=== PATIENT | female | born 1970 | race Caucasian/White ===

== ENCOUNTER 2016-09-12 20:44 | Inpatient (IN) | payer MEDICAID, OTHER ==
[~2016-09-12] VITALS: Ht 160 cm; Wt 59.4 kg
[2016-09-12] MEDS ORDERED: IV D5 LR 500 ML IV ONE ×2 (21:00→21:15)
[2016-09-12] MEDS ORDERED: ONDANSETRON HCL/PF 4 MG/2 ML VIAL IVP ONE (21:00)
[2016-09-12] MEDS ORDERED: MECLIZINE HCL 12.5 MG TABLET PO ONE (21:00)
--- NOTE | 2016-09-12 21:00 | NUR ---
PT A/OX4 BREATHING EFFORTLESSLY ON ROOM AIR, PT C/O NAUSE AND VOMITING WITH DIARRHEa x 3 HOURS, PT FAMILY IS AT BEDSIDE, IV PLACED LABS DRAWN, URINE COLLECTED, PT ON MONITOR VSS MD MADE AWARE WILL CONTINUE TO MONITOR.
[2016-09-12] MEDS ORDERED: MECLIZINE HCL 25 MG TABLET ONE (21:14)
[2016-09-12] MEDS ORDERED: ONDANSETRON HCL/PF 4 MG/2 ML VIAL ONE (21:14)
[2016-09-12] MEDS ORDERED: IV SET PRIMARY PUMP SET 1 EA INFUS.SET MC ONE (21:15)
[2016-09-12] MEDS ORDERED: LORAZEPAM INJ 2 MG/ML VIAL ONE (22:12)
[2016-09-12] MEDS ORDERED: PROMETHAZINE HCL 25 MG/ML AMPUL ONE (22:12)
[2016-09-12] MEDS ORDERED: PROMETHAZINE HCL 25 MG/ML AMPUL IV ONE (22:30)
[2016-09-12] MEDS ORDERED: LORAZEPAM INJ 2 MG/ML VIAL IV ONE (22:30)
--- NOTE | 2016-09-12 22:38 | NUR ---
PT STATES SHE IS FEELING A LITTLE BETTER BUT NOT FEELING 100% MD MADE AWARE WILL CONTINUE TO MONITOR.
--- NOTE | 2016-09-12 23:27 | NUR ---
PT TO CT
[2016-09-12 23:28] LABS: BASOPHILS % (AUTO) 0.4 % (0.0-2.0); EOSINOPHILS % (AUTO) 0.5 % (0.0-6.0); HEMATOCRIT 41 % (33-45); HEMOGLOBIN 13.7 g/dL (11.5-14.8); LYMPHOCYTES % (AUTO) 17.4 % (20.0-44.0); MEAN CORPUSCULAR HEMOGLOBIN 29 PG (26.0-33.0); MEAN CORPUSCULAR HGB CONC 34 g/dl (31.0-36.0); MEAN CORPUSCULAR VOLUME 86 fL (82-100); MONOCYTES # (AUTO) 0.1 /CMM (0.1-1.30); MONOCYTES % (AUTO) 2.2 % (2.0-12.0); NEUTROPHILS # (AUTO) 4.6 /CMM (1.8-8.9); NEUTROPHILS % (AUTO) 79.5 % (43.0-81.0); PLATELET COUNT (AUTO) 119 /CMM (150-450); WHITE BLOOD COUNT (AUTO) 5.8 K/uL (4.3-11.0)
[2016-09-12 23:37] LABS: ALBUMIN 4.4 g/dL (3.4-5.0); BILIRUBIN,DIRECT 0.1 mg/dL (0.0-0.2); BILIRUBIN,TOTAL 0.4 mg/dL (0.2-1.0); CREATININE 0.7 mg/dL (0.6-1.3); POTASSIUM 3.4 mmol/L (3.5-5.1); TOTAL PROTEIN, SERUM 8.1 g/dL (6.4-8.2)
[2016-09-13 00:02] LABS: BAND % (MANUAL) 1 % (0.0-5.0); EOSINOPHILS % (MANUAL) 1 % (0-4); LYMPHOCYTES % (MANUAL) 17 % (16-48); MONOCYTES % (MANUAL) 3 % (0-11.0); NEUTROPHILS % (MANUAL) 78 (42-76)
[2016-09-13 00:13] LABS: CALCIUM, SERUM 9.5 mg/dL (8.5-10.1)
[2016-09-13 01:35] VITALS: BP_SYST 110; BP_SYST 111; BP_DIAS 62
--- NOTE | 2016-09-13 01:40 | NUR ---
MS RN NOTES RECEIVED PT FROM THE ER VIA STRETCHER, TRANSFERRED PT TO BED SAFELY. PT IS AWAKE, A/O X4, VERBALLY RESPONSIVE. ACCOMPANIED WITH 3 FAMILY MEMBERS ( , 2 SISTERS). NO C/O DISTRESS, NOR SOB NOTED. DENIES ANY PAIN OR DISCOMFORT AT THIS TIME. PT STATED THAT SHE'S FEELING BETTER AT THIS TIME, NO NAUSEA AND VOMITING NOTED. IV SITE ON RAC G# 18 INTACT AND PATENT, NO S/S OF INFILTRATION NOTED. DENIES ANY PAIN OR DISCOMFORT AT THIS TIME. ALL NEEDS ATTENDED AND MET. KEPT COMFORTABLE. BODY CHECK DONE, SKIN IS INTACT. CALL LIGHT WITHIN REACH. SAFETY PRECAUTIONS OBSERVED. WILL CONTINUE TO MONITOR.
[2016-09-13] MEDS ORDERED: Potassium Chloride 20 MEQ in IV NS 0.9% 1,000 ML IV SCH (02:00)
[2016-09-13] MEDS ORDERED: ONDANSETRON HCL/PF 4 MG/2 ML VIAL IV PRN (02:00)
[2016-09-13] MEDS ORDERED: ACETAMINOPHEN 325 MG TABLET PO PRN (02:00)
[2016-09-13] MEDS ORDERED: HYDROCODONE/APAP 5/325MG 1 EACH TABLET PO PRN (02:00)
[2016-09-13] MEDS ORDERED: IV PREMIX NS +20MEQ KCL 1 L IV ONE (02:08)
[2016-09-13] MEDS ORDERED: IV SET PRIMARY PUMP SET 1 EA INFUS.SET MC ONE (02:28)
--- NOTE | 2016-09-13 02:42 | NUR ---
STARTED IVF TO PT ( NS WITH KCL 20 MEQ) TANKAGE GRINDER TANYA, OVER RIDE THE IVF. RIGHT DOSE, RIGHT PT , IVF INFUSING WELL. WILL CONT TO MONITOR. PT'S CALL LIGHT WITHIN REACH.
[2016-09-13] MEDS ORDERED: MECLIZINE HCL 25 MG TABLET PO SCH (05:00)
[2016-09-13] MEDS ORDERED: MECLIZINE HCL 25 MG TABLET ONE (05:34)
[2016-09-13 06:51] LABS: BASOPHILS % (AUTO) 0.3 % (0.0-2.0); EOSINOPHILS % (AUTO) 0.1 % (0.0-6.0); HEMATOCRIT 37 % (33-45); HEMOGLOBIN 12.4 g/dL (11.5-14.8); LYMPHOCYTES % (AUTO) 17.2 % (20.0-44.0); MEAN CORPUSCULAR HEMOGLOBIN 29 PG (26.0-33.0); MEAN CORPUSCULAR HGB CONC 34 g/dl (31.0-36.0); MEAN CORPUSCULAR VOLUME 86 fL (82-100); MONOCYTES # (AUTO) 0.2 /CMM (0.1-1.30); MONOCYTES % (AUTO) 3.8 % (2.0-12.0); NEUTROPHILS # (AUTO) 4.4 /CMM (1.8-8.9); NEUTROPHILS % (AUTO) 78.6 % (43.0-81.0); PLATELET COUNT (AUTO) 115 /CMM (150-450); RDW COEFFICIENT OF VARIATION 13.6 (11.5-15.0); RED BLOOD CELL COUNT(AUTO) 4.25 MIL/uL (4.0-5.2); WHITE BLOOD COUNT (AUTO) 5.6 K/uL (4.3-11.0)
--- NOTE | 2016-09-13 06:51 | NUR ---
MS RN NOTES PT IS IN BED, RESTING COMFORTABLY AT THIS TIME. AROUSES EASILY. A/O X4, VERBALLY RESPONSIVE. NO C/O DISTRESS, NOR SOB NOTED. DENIES ANY PAIN OR DISCOMFORT AT THIS TIME. NO C/ O NAUSEA AND VOMITING AT THIS TIME. IV SITE ON RAC G# 18 INTACT AND PATENT, NO S/S OF INFILTRATION NOTED. DENIES ANY PAIN OR DISCOMFORT AT THIS TIME. ALL NEEDS ATTENDED AND MET. KEPT COMFORTABLE. SKIN IS INTACT. CALL LIGHT WITHIN REACH. SAFETY PRECAUTIONS OBSERVED. WILL ENDORSE TO NEXT SHIFT FOR MOLLY.
[2016-09-13 07:03] LABS: CALCIUM, SERUM 8.9 mg/dL (8.5-10.1); CREATININE 0.6 mg/dL (0.6-1.3); POTASSIUM 3.9 mmol/L (3.5-5.1)
--- NOTE | 2016-09-13 07:26 | NUR ---
AM RN NOTE Received patient awake, A/O X4 verbally responsive. Denies any pain or discomfort at this time. No C/O N/V or dizziness at this time. IV site intact and patent. Bed in low locked position. Will continue to monitor.
[2016-09-13 08:00] VITALS: BP 100/55
--- NOTE | 2016-09-13 08:52 | NUR ---
AM RN NOTE Patient requested to check her Lipid panel, Dr. Johnson made aware.
[2016-09-13] MEDS ORDERED: MECL-102 PO (09:05)
[2016-09-13 09:28] LABS: CHOLESTEROL 235 mg/dL (<200); HDL CHOLESTEROL 61 mg/dL (40-60); LDL 146 mg/dL (0-99); TRIGLYCERIDES 39 mg/dL (30-150)
--- NOTE | 2016-09-13 09:30 | NUR ---
AM RN NOTE Patient seen and assessed by Dr. Johnson with discharge home order. Patient A/O X4 verbally responsive. Denies any pain or discomfort at this time. Discharge instructions on medications, F/U appts and teachings given to pt and verbalize understanding.
--- NOTE | 2016-09-13 09:50 | NUR ---
AM RN NOTE HL & ID band removed. Skin intact and no belongings with pt. Pt awake, A/O X4 discharged/ left unit at this time as accompanied by Sister (Farideh). Pt denied any dizziness or discomfort at time of discharge.
== END 2016-09-13 09:50 | disposition home or self-care (01) | DRG 111 ==
LOC: ER 20:46 → MEDSG2 09-13 01:21
PROVIDERS: ADMIT Internal Medicine; ATTEND Internal Medicine
DX: H81.399 Other peripheral vertigo, unspecified ear (principal); Z82.49 Family history of ischemic heart disease and other diseases of the circulatory system; Z83.3 Family history of diabetes mellitus
CPT/HCPCS: 36415; 70450-TC; 80048-TC; 80061-TC; 80076-TC; 85025-TC; 87081-TC; A4606; J2060; J2405; J2550; J3480; J3490; J7030; J8597; Z7610

== ENCOUNTER 2017-02-12 01:45 | Emergency (ER) | payer OTHER ==
[~2017-02-12] VITALS: Ht 162.6 cm; Wt 61.2 kg
[~2017-02-12 01:45] MED LIST: MECL-102 PO
--- NOTE | 2017-02-12 01:50 | NUR ---
To bed 7 a 46 yo female bibself w c/o "woke up with dizziness, nausea and vomiting." Patient is aaox4, nad noted. vss. nondiaphoretic. comfort and safety measures rendered.
--- NOTE | 2017-02-12 02:10 | NUR ---
started a saline lock on the left wrist g18.
[2017-02-12] MEDS ORDERED: ONDANSETRON HCL/PF 4 MG/2 ML VIAL IV ONE (02:30)
[2017-02-12] MEDS ORDERED: IV NS 0.9% 1,000 ML BAG IV ONE (02:30)
[2017-02-12] MEDS ORDERED: ONDANSETRON HCL/PF 4 MG/2 ML VIAL ONE (02:54)
[2017-02-12] MEDS ORDERED: ONDANSETRON 4 MG TAB.RAPDIS ONE (03:01)
[2017-02-12] MEDS ORDERED: ONDANSETRON 4 MG TAB.RAPDIS SL ONE (03:30)
--- NOTE | 2017-02-12 03:53 | NUR ---
IV removed. Catheter intact and site benign. Pressure and 4x4 applied to site. No bleeding noted. Patient discharged to home in stable condition. Written and verbal after care instructions given. Patient verbalizes understanding of instruction. Patient is ambulatory with steady gait, accompanied by family, no further complaints.
[2017-02-12 03:54] VITALS: BP 122/72
== END 2017-02-12 03:54 | disposition home or self-care (01) ==
LOC: ER 01:45
DX: R42 Dizziness and giddiness (principal); R11.2 Nausea with vomiting, unspecified
CPT/HCPCS: 96360; 99284; A4606; J7030; Q0162; Z7610; J2405

== ENCOUNTER 2017-11-11 18:43 | Emergency (ER) | payer OTHER ==
[~2017-11-11] VITALS: Ht 162.6 cm; Wt 61.7 kg
--- NOTE | 2017-11-11 18:45 | NUR ---
BIB RA 86 FROM HOME,NAUSEA/VOMITING X 1 HR, H/O VERTIGO
[2017-11-11] MEDS ORDERED: ONDANSETRON HCL/PF - ER 4 MG/2 ML VIAL IV ONE (19:00)
[2017-11-11] MEDS ORDERED: IV NS 0.9% 1,000 ML BAG IV ONE ×2 (19:00→20:30)
[2017-11-11] MEDS ORDERED: MECLIZINE HCL 25 MG TABLET PO ONE (19:00)
[2017-11-11] MEDS ORDERED: MECLIZINE HCL 25 MG TABLET ONE (19:10)
[2017-11-11] MEDS ORDERED: ONDANSETRON HCL/PF 4 MG/2 ML VIAL ONE (19:10)
[2017-11-11] MEDS ORDERED: METOCLOPRAMIDE HCL 10 MG/2 ML VIAL IV ONE (20:30)
--- NOTE | 2017-11-11 20:30 | NUR ---
PT STS THAT SHE FEELS A LOT BETTER. DENIES DIZZINESS, N/V, CP, SOB @ THIS TIME. WILL CONT TO MONITOR.
[2017-11-11] MEDS ORDERED: METOCLOPRAMIDE HCL 10 MG/2 ML VIAL ONE (21:18)
[2017-11-11 21:37] LABS: APPEARANCE,URINE Slightly Cloudy (CLEAR); BILIRUBIN,URINE Negative (NEGATIVE); BLOOD, URINE Negative Ery/uL (NEGATIVE); COLOR,URINE Yellow (YELLOW); KETONES,URINE 15 (NEGATIVE); LEUKOCYTE ESTERASE ,URINE Trace (NEGATIVE); NITRITE, URINE Negative (NEGATIVE); PH,URINE >9.0 (5.0-8.0); PROTEIN,URINE 100 mg/dl (NEGATIVE); UGLUCOSE Negative (NEGATIVE); UROBILINOGEN,URINE 0.2 EU/dL (0.2)
[2017-11-11 21:54] LABS: BACTERIA,URINE Few /HPF (None Seen); RBC,URINE NONE SEEN /HPF (0-2); SQUAMOUS EPITHELIAL CELL,UR Few /HPF (None Seen)
--- NOTE | 2017-11-11 22:38 | NUR ---
Patient discharged to home in stable condition. Written and verbal after care instructions given. Patient verbalizes understanding of instruction.
[2017-11-11 22:39] VITALS: BP 118/70
== END 2017-11-11 21:20 | disposition home or self-care (01) ==
LOC: ER 18:46
DX: R42 Dizziness and giddiness (principal); F41.9 Anxiety disorder, unspecified; Z90.721 Acquired absence of ovaries, unilateral
CPT/HCPCS: 81001; 84703; 93005; 96361; 96374; 99285; A4606; J2405 ×2; J7030 ×2; J8597; Z7610; 81000-TC; J2765